=== PATIENT | male | born 1940 | race Caucasian/White ===

== ENCOUNTER 2017-07-24 10:58 | Outpatient (CLI) | payer MEDICARE, OTHER ==
[2014-04-13 11:25] VITALS: BP 118/64
[2017-07-24 11:30] LABS: BASOPHILS % 0.9 (0.0-1.5); EOSINOPHILS % 2.5 % (0.0-6.8); MEAN CORPUSCULAR HEMOGLOBIN 31.5 pg (28.0-34.0); MEAN CORPUSCULAR VOLUME 96.1 fl (80.0-100.0); NEUTROPHILS # 3.8 # k/uL (1.4-7.7)
[2017-07-24 11:38] LABS: eGFR (African) > 60; eGFR (Non-African) > 60
== END 2017-07-24 11:00 ==
LOC: LAB 10:58
PROVIDERS: ATTEND Family Medicine
DX: I10 Essential (primary) hypertension (principal)
CPT/HCPCS: 36415; 80053; 85025

== ENCOUNTER 2017-09-10 07:41 | Day surgery (SDC) | payer MEDICARE, OTHER ==
[2014-04-13 11:25] VITALS: BP 118/64
[2017-09-10] MEDS ORDERED: LACTATED RINGERS 1,000 ML IV.SOLN IV ONE (07:42)
[2017-09-10] MEDS ORDERED: PROPOFOL 500 MG/50 ML VIAL IV ONE (07:42)
[2017-09-10] MEDS ORDERED: SALINE FLUSH 10 ML DISP.SYRIN IVF ONE (07:42)
--- NOTE | 2017-09-10 09:10 | GI Report ---
REFERRING PHYSICIAN: Dr. Lavell Perkins KEYSEATER OPERATOR: Kostas Marquez MD PROCEDURE MEDICATION: Propofol as per anesthesia. INDICATIONS: This 77-year-old man has had multiple adenomatous polyps in the past. He is referred for a surveillance high-risk follow up. PROCEDURE PERFORMED: Colonoscopy and polypectomy. PROCEDURE: An Olympus video colonoscope was advanced to the rectum. He does have moderate diverticular disease of the sigmoid and descending colon. The colonoscope was advanced to the cecum. The appendiceal orifice and ileocecal valve were normal. In the ascending colon, there were 2 polyps removed with a cold snare between 3 and 4 mm in size. Near the hepatic flexure, another 2 polyps were removed between 3 and 4 mm in size and submitted to pathology. In the descending colon at 50 cm, there was a polyp that was 3 mm in size removed with a cold snare and submitted to pathology. The sigmoid colon showed diverticular disease. The rectum was normal. Patient tolerated the procedure well. FINDINGS: Five polyps removed and submitted to pathology. RECOMMENDATIONS: 1. A high-fiber diet. 2. Would consider re-looking at his colon in 5 years, sooner if there was atypia dysplasia. cc: Dr. Lavell TOPETE
== END 2017-09-10 07:42 ==
LOC: OPSURG 07:41
PROVIDERS: ATTEND Internal Medicine Gastroenterology
DX: D12.3 Benign neoplasm of transverse colon (principal); D12.5 Benign neoplasm of sigmoid colon
CPT/HCPCS: 88305; J2704; J7120; 45385; S1016

== ENCOUNTER 2018-04-19 14:49 | Outpatient (CLI) | payer MEDICARE, OTHER ==
[2014-04-13 11:25] VITALS: BP 118/64
--- NOTE | 2018-04-20 00:10 | Diagnostic Imaging Report ---
ERNESTO DEJESUS [facility] [address] [facility] [id number] Report Submission Date: Apr 19, 2018 3:46:08 PM SCALE TANK OPERATOR Patient Study Name: CADEN PATRICIO Date: Apr 19, 2018 3:04:48 PM SCALE TANK OPERATOR Modality Type: DX Gender: M Description: SPINE : 38 Institution: [facility] Physician: ERNESTO MCKNIGHT Examination: Cervical spine History: Chronic pain (Hx) Comparison exams: None available Findings: 4 views of the cervical spine demonstrate normal height and alignment. No anterior compression. No abnormal listhesis. Numerous osteophytes and facet degenerative changes. No odontoid abnormality. No prevertebral abnormality Impression: Degenerative changes. No acute appearing osseous abnormality Electronically signed on Apr 19, 2018 3:46:08 PM SCALE TANK OPERATOR by: Umberto TOPETE
== END 2018-04-19 15:00 ==
LOC: LAB 14:49
PROVIDERS: ATTEND Family Medicine
DX: M54.12 Radiculopathy, cervical region (principal); N40.1 Benign prostatic hyperplasia with lower urinary tract symptoms
CPT/HCPCS: 36415; 72040; 84153

== ENCOUNTER 2018-07-22 14:08 | Outpatient (CLI) | payer MEDICARE, OTHER ==
[2014-04-13 11:25] VITALS: BP 118/64
[2018-07-22 14:30] LABS: MEAN CORPUSCULAR HEMOGLOBIN 29.4 pg (28.0-34.0)
[2018-07-22 14:48] LABS: eGFR (Non-African) > 60
[2018-07-22 14:50] LABS: BASOPHILS % 2 % (0-2); EOSINOPHILS % 2 % (0-7); MONOCYTES % 1 % (0-11); SEGMENTED NEUTROPHILS % 81 % (39-79); TOXIC GRANULATION PRESENT
[2018-07-22 14:51] LABS: ANISOCYTOSIS 1+ (NEGATIVE); HYPOCHROMASIA 1+ (NEGATIVE)
== END 2018-07-22 14:10 ==
LOC: LAB 14:08
PROVIDERS: ATTEND Internal Medicine
DX: Z79.899 Other long term (current) drug therapy (principal)
CPT/HCPCS: 36415; 80053; 85025; 85651